=== PATIENT | male | born 1975 | race Caucasian/White ===

== ENCOUNTER 2019-03-17 14:00 | Emergency (ER) | payer OTHER, SELFPAY ==
--- NOTE | ~2019-03-17 | XR_ITS ---
XR hand LT min 3V DATE: 03/17/2019 14:27 INDICATION: Injury. Pain at third and fourth digits. TECHNIQUE: 3 views of left hand COMPARISON: None FINDINGS: There is evidence of an old avulsion fracture of the dorsal base of the distal phalanx of t he fifth digit. No recent fracture or dislocation, periosteal reaction or bone destruction. The joint space narrowing is evident. No erosive change or chondral calcinosis. IMPRESSION: No recent fracture or dislocation Reviewed, dictated and finalized at location A. CATION SERVICES SPECIALIST
[2019-03-17 14:09] VITALS: BP 129/85; PULSE 94; RESP 18; TEMP 36.9; O2SAT 100
--- NOTE | 2019-03-17 15:38 | ED.UPPEXIN ---
HPI - Extremity Injury (Upper) General Chief Complaint: Extremity Injury, Upper Stated Complaint: L HAND PAIN Time Seen by Provider: 03/17/19 14:14 Source: patient Mode of arrival: ambulatory Limitations: no limitations History of Present Illness HPI narrative: This is a 43-year-old male that presents the emergency department for left hand pain x1 week. Reports an injury to the hand about a week ago for which she was seen at an outside facility and an x-ray was done that was normal. Reports a couple of days ago he had an injury at work. Reports a crush injury to the hand. Reports since he has had pain in the hand especially of the third, fourth and fifth fingers. Reports the pain is worsened with range of motion. He has been icing and taking [id number] pain medication with little relief. Denies decreased range of motion or numbness. Related Data Home Medications Medication Instructions Recorded Confirmed lisinopril 03/17/19 Allergies Allergy/AdvReac Type Severity Reaction Status Date / Time ibuprofen [From Motrin IB] AdvReac Nausea Verified 03/17/19 14:43 Review of Systems Review of Systems: Narrative: CONSTITUTIONAL: Denies fever MUSCULOSKELETAL: Reports joint pain, and myalgia. NEUROLOGIC: Denies numbness, or weakness. All systems reviewed & are unremarkable except as noted in HPI and below PMFSH Past Medical History Medical History (Updated 03/17/19 @ 15:55 by Avril French PA-C) History of ADHD History of hypertension Social History Social History Gender identity (if verbalized by the patient): Male Exam Narrative: Exam Narrative: GENERAL: Well-appearing, well-nourished, and in no acute distress. HEAD: Normocephalic, atraumatic. EYES: EOMI. EXTREMITIES: Normal range of motion. No edema or obvious deformity. Normal sensation. Normal radial pulses SKIN: Warm, dry, no rash. NEURO: No focal deficits. Alert and oriented x3. PSYCH: Normal mood and affect Course Vital Signs Vital signs: Vital Signs Temperature 98.4 F 03/17/19 14:09 Pulse Rate 94 03/17/19 14:09 Respiratory Rate 18 03/17/19 14:09 Blood Pressure 129/85 03/17/19 14:09 Pulse Oximetry 100 03/17/19 14:09 Temperature 98.4 F 03/17/19 14:09 Pulse Rate 94 03/17/19 14:09 Respiratory Rate 18 03/17/19 14:09 Blood Pressure 129/85 03/17/19 14:09 Pulse Oximetry 100 03/17/19 14:09 MDM - Extremity Injury (Upper) MDM Narrative Medical decision making narrative: Patient presents emergency department for left hand pain after an injury at work a couple days ago. Left hand x-ray without acute changes. Patient was instructed to rest, ice and take [id number] pain medication as needed. He is to follow-up with primary care doctor. He was given warnings to return to the ER Imaging Data Radiologist's impression: ITS Impressions Hand X-Ray 03/17/19 14:29 IMPRESSION: No recent fracture or dislocation Critical Care Time Critical Care Time Critical Care Time: No Discharge Plan Discharge Clinical Impression: Hand pain, left Patient Disposition: Home, Self-Care Condition: Stable Instructions: Crush Injury (ED) Additional Instructions: Return to the emergency department if you experience fever, redness and swelling of your hand, numbness, your hand feels cold, or any other symptoms that are concerning to you Ice to the area. Elevate. Tylenol as needed for pain Follow-up with your primary care doctor Prescriptions: No Action lisinopril 10 mg tablet RF: 0 Follow-up/Referrals: Manjit,BRIAN Ferrera [Primary Care Provider] - 3 Days Time of Disposition: 15:38
== END 2019-03-17 16:05 | disposition home or self-care (01) ==
PROVIDERS: Emergency Provider Emergency Medicine; PCP Physician Assistant
DX: M79.642 Pain in left hand (principal); I10 Essential (primary) hypertension
CPT/HCPCS: 73130; 99283; A9270

== ENCOUNTER 2019-04-21 18:20 | Emergency (ER) | payer OTHER, SELFPAY ==
--- NOTE | ~2019-04-21 | XR_ITS ---
EXAMINATION: XR foot RT min 3V EXAM DATE: 04/21/2019 19:26 INDICATION: Right foot pain for 4 days. No known recent injury provided at this time. TECHNIQUE: Right foot dorsoplantar, lateral and oblique projections obtained and reviewed. There is no prior study for comparison. FINDINGS: Right metatarsal bones unremarkable. No periosteal reaction or band of sclerosis to sugge st subacute stress fracture. There are no bony erosions identified. There are no acute fractures or d islocations identified. There is no subcutaneous gas. The soft tissue is unremarkable. There are no radiopaque foreign bodies. IMPRESSION: 1. Unremarkable XR foot RT min 3V exam. Reviewed, dictated and finalized at location A. GER MACHINE
[2019-04-21 18:43] VITALS: BP 181/100; PULSE 92; RESP 18; TEMP 36.7; O2SAT 100
--- NOTE | 2019-04-21 19:07 | ED.LOWEXIN ---
HPI - Extremity Injury (Lower) General Chief Complaint: Extremity Injury, Lower Stated Complaint: Right foot Pain Time Seen by Provider: 04/21/19 19:07 Source: patient and RN notes reviewed Mode of arrival: ambulatory Limitations: no limitations History of Present Illness HPI Narrative: 44-year-old male presents to express care with complaints of pain to his right foot which has progressively increased over the last 4 days. Denies any known injury to his right foot, states he is on his feet a lot and pain incraseses with activity and weight bearing. Patient states that his discomfort is over the proximal aspect of his third and 4th toes dorsally. Patient does have hammer toes to the 3rd and 4th toes of his right foot, strong pedal and posterior tibial pulses present to right foot, foot warm to touch and mobile no tingling or numbness to his right foot verbalized. complaint: other (right foot pain) Onset (ago): day(s) (4) Injury: Right: foot Type of Injury: other (None) Severity: moderate Severity scale (1-10): 4 Relieving factors: nothing Exacerbating factors: weight bearing Context: other (No known injury) Associated symptoms: other (Pain proximal dorsal third and fourth toes with activity) Other symptoms: none Treatments prior to arrival: other ( Tylenol) Related Data Home Medications Medication Instructions Recorded Confirmed lisinopril 10 mg PO DAILY 04/21/19 04/21/19 sildenafil 25 mg PO DAILY PRN 04/21/19 04/21/19 Allergies Allergy/AdvReac Type Severity Reaction Status Date / Time ibuprofen [From Motrin IB] AdvReac Nausea Verified 04/21/19 18:59 Review of Systems Review of Systems: Narrative: CONSTITUTIONAL: Denies fever, chills, or sweats. EYES: Denies visual changes, redness, or discharge. ENT: Denies rhinorrhea, congestion, sore throat, or otalgia. CARDIOVASCULAR: Denies chest pain, palpitations, or edema. RESPIRATORY: Denies cough or dyspnea. GASTROINTESTINAL: Denies abdominal pain, nausea, vomiting, or diarrhea. GENITOURINARY: Denies dysuria or hematuria. SKIN: Denies rash or itching. MUSCULOSKELETAL: Denies back pain, positive right foot pain or myalgia. NEUROLOGIC: Denies headache, numbness, or weakness. PSYCHIATRIC: Denies anxiety or depression. All systems reviewed & are unremarkable except as noted in HPI and below PMFSH Past Medical History Medical History History of ADHD History of hypertension Social History Social History (Updated 04/25/19 @ 14:37 by Alanis Reese NP) Living arrangements: with family Gender identity (if verbalized by the patient): Male Comments At time of signature, agree with nursing past medical, social history. There is no relevant family history pertinent to the presenting complaint Exam Narrative: Exam Narrative: GENERAL: Well-appearing, well-nourished, and in no acute distress. HEAD: Normocephalic, atraumatic. EYES: PERRLA and EOMI. ENT: Nares clear, no rhinorrhea or epistaxis. Mucous membranes moist. NECK: Supple. CHEST: Clear to auscultation. No respiratory distress. HEART: Regular rate and rhythm. No murmur heard. Normal peripheral pulses. ABDOMEN: Soft, non tender, non distended, normal active bowel sounds. EXTREMITIES: Normal range of motion. No edema. full ROM of right foot, pain stated dorsal proximal region of right 3rd and 4th toe region of right foot, sensation, circulation and mobility intact, does have hammer toes 3rd and 4th toes of his right foot SKIN: Warm, dry, no rash. NEURO: No focal deficits. Alert and oriented x3. Course Vital Signs Vital signs: Vital Signs Temperature 36.7 C 04/21/19 18:43 Pulse Rate 92 04/21/19 18:43 Respiratory Rate 18 04/21/19 18:43 Blood Pressure 181/100 H 04/21/19 18:43 Pulse Oximetry 100 04/21/19 18:43 Temperature 36.7 C 04/21/19 18:43 Pulse Rate 92 04/21/19 18:43 Respiratory Rate 18 04/21/19 18:43 Blood Pressure 181/
== END 2019-04-21 19:45 | disposition home or self-care (01) ==
PROVIDERS: Emergency Provider Registered Nurse; PCP Physician Assistant
DX: M79.671 Pain in right foot (principal); I10 Essential (primary) hypertension
CPT/HCPCS: 73630; 99213; G0463

== ENCOUNTER 2019-05-18 18:32 | Emergency (ER) | payer OTHER, SELFPAY ==
--- NOTE | ~2019-05-18 | XR_ITS ---
EXAMINATION: XR hand LT min 3V EXAM DATE: 05/18/2019 18:52 INDICATION: Initial encounter following injury, with pain of the left hand. TECHNIQUE: Left hand frontal, lateral and oblique projections obtained and reviewed. Comparison is ma de to prior examination from 03/17/2019. FINDINGS: Left metacarpal bones are unremarkable. There are no acute fractures or dislocations ident ified. There is no subcutaneous gas. The soft tissue is unremarkable. There are no radiopaque for eign bodies. IMPRESSION: No acute osseous findings. Reviewed, dictated and finalized at location A. IMPRESSION: No acute osseous findings.
[2019-05-18 18:41] VITALS: BP 159/92; PULSE 107; RESP 20; TEMP 36.9; O2SAT 98
--- NOTE | 2019-05-18 19:04 | ED.UPPEXIN ---
HPI - Extremity Injury (Upper) General Chief Complaint: Extremity Injury, Upper Stated Complaint: left hand injury Time Seen by Provider: 05/18/19 18:55 Source: patient and RN notes reviewed Mode of arrival: ambulatory Limitations: no limitations History of Present Illness HPI narrative: Patient presents today complaining of a laceration to the base of his left second and third fingers. He was using a power screwdriver to screw a piece into his lawnmower. 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 Patient is experiencing pain to the third finger. Currently rates his pain 8/10. He tried Tylenol without relief. He is up-to-date on his tetanus vaccine. MD complaint: injury to: left and hand Related Data Home Medications Medication Instructions Recorded Confirmed sildenafil 25 mg PO DAILY PRN 04/21/19 05/18/19 amlodipine 5 mg PO DAILY 05/18/19 05/18/19 citalopram 40 mg PO DAILY 05/18/19 05/18/19 hydroxyzine HCl 25 mg PO TID PRN 05/18/19 05/18/19 lisinopril 20 mg PO DAILY 05/18/19 05/18/19 Allergies Allergy/AdvReac Type Severity Reaction Status Date / Time ibuprofen [From Motrin IB] AdvReac Nausea Verified 05/18/19 18:55 Review of Systems Review of Systems: Narrative: CONSTITUTIONAL: Denies body aches, fever, chills, or sweats. EYES: Denies visual changes, redness, or discharge. ENT: Denies rhinorrhea, congestion, sore throat, or otalgia. CARDIOVASCULAR: Denies chest pain, palpitations, or edema. RESPIRATORY: Denies cough or dyspnea. GASTROINTESTINAL: Denies abdominal pain, nausea, vomiting, or diarrhea. GENITOURINARY: Denies dysuria or hematuria. SKIN: Denies rash, itching. + Laceration to left hand MUSCULOSKELETAL: Denies back pain, joint pain, or myalgia. NEUROLOGIC: Denies headache, numbness, tingling, or weakness. PSYCH: Denies depression or anxiety. PMFSH Social History Social History (Updated 04/25/19 @ 14:37 by Alanis Reese NP) Gender identity (if verbalized by the patient): Male Exam Narrative: Exam Narrative: GENERAL: Well-appearing, well-nourished, and in no acute distress. HEAD: Normocephalic, atraumatic. EYES: EOMI. No redness or drainage. Conjunctivae normal. ENT: Mucous membranes pink and moist. NECK: Normal AROM. CHEST: No respiratory distress. HEART: Regular rate and rhythm. No murmur appreciated. Normal peripheral pulses. EXTREMITIES: Normal range of motion. No edema. SKIN: Warm, dry, no rash. Capillary refill normal. Normal skin turgor. 1.5cm skin avulsion that does not penetrate into the adipose, at base of the volar aspect of the left 2nd finger, extending to the base of the third finger noted and surrounding ecchymosis. Distal sensation intact. Capillary refill normal. Full AROM of all fingers against resistance. NEURO: No focal deficits. Alert and oriented x3. Gait steady. PSYCH: Anxious Course Vital Signs Vital signs: Vital Signs Temperature 98.4 F 05/18/19 18:41 Pulse Rate 107 H 05/18/19 18:41 Respiratory Rate 20 05/18/19 18:41 Blood Pressure 159/92 H 05/18/19 18:41 Pulse Oximetry 98 05/18/19 18:41 Temperature 98.4 F 05/18/19 18:41 Pulse Rate 107 H 05/18/19 18:41 Respiratory Rate 20 05/18/19 18:41 Blood Pressure 159/92 H 05/18/19 18:41 Pulse Oximetry 98 05/18/19 18:41 Reviewed. Pt has been instructed to follow up with his PCP regarding his elevated blood pressure today. MDM - Extremity Injury (Upper) MDM Narrative Medical decision making narrative: Patient requesting pain medication for severe 3rd finger pain. After examining and irrigating wound and determining that wound did not penetrate the adipose, I told patient that narcotic pain medication was not indicated at this time. Differential Diagnosis Differential diagnosis: Likely other (Foreign body, fracture, laceration, puncture wound) Imaging Data Radiologist's impression: ITS Impressions Hand X-R
== END 2019-05-18 19:20 | disposition home or self-care (01) ==
PROVIDERS: Emergency Provider Nurse Practitioner; PCP Physician Assistant
DX: S61.402A Unspecified open wound of left hand, initial encounter (principal); W29.8XXA Contact with other powered hand tools and household machinery, initial encounter
CPT/HCPCS: 73130; 99213; G0463

== ENCOUNTER 2019-05-24 19:10 | Emergency (ER) | payer OTHER, SELFPAY ==
[2019-05-24 19:16] VITALS: BP 158/100; PULSE 96; RESP 20; TEMP 36.8; O2SAT 98
--- NOTE | 2019-05-24 19:24 | ED.SKABFB ---
HPI - Skin/Abscess/Foreign Bdy General Chief complaint: Extremity Injury, Upper Stated complaint: Injury to left 1st finger Time Seen by Provider: 05/24/19 19:24 Source: patient and RN notes reviewed History of Present Illness HPI narrative: Patient is a 44-year-old male that presents the urgent care with complaints of a laceration to the left index finger. Patient states that he was using a pocket knife on his flagpole and it slipped across to the left index finger. Patient states that he wrapped it and came straight to the urgent care. Patient states he is up-to-date on his tetanus. No other acute complaints. No acute distress noted. Patient read the plan of care. Related Data Home Medications Medication Instructions Recorded Confirmed sildenafil 25 mg PO DAILY PRN 04/21/19 05/18/19 amlodipine 5 mg PO DAILY 05/18/19 05/18/19 citalopram 40 mg PO DAILY 05/18/19 05/18/19 hydroxyzine HCl 25 mg PO TID PRN 05/18/19 05/18/19 lisinopril 20 mg PO DAILY 05/18/19 05/18/19 Allergies Allergy/AdvReac Type Severity Reaction Status Date / Time ibuprofen [From Motrin IB] AdvReac Nausea Verified 05/18/19 18:55 Review of Systems Review of Systems: Narrative: CONSTITUTIONAL: Denies fever, chills, or sweats. EYES: Denies visual changes, redness, or discharge. ENT: Denies rhinorrhea, congestion, sore throat, or otalgia. CARDIOVASCULAR: Denies chest pain, palpitations, or edema. RESPIRATORY: Denies cough or dyspnea. GASTROINTESTINAL: Denies abdominal pain, nausea, vomiting, or diarrhea. GENITOURINARY: Denies dysuria or hematuria. SKIN: Reports of a laceration to the left index finger MUSCULOSKELETAL: Denies back pain, joint pain, or myalgia. NEUROLOGIC: Denies headache, numbness, or weakness. All other systems reviewed are negative, except as documented in HPI. [facility] Social History Social History (Updated 04/25/19 @ 14:37 by Alanis Reese NP) Gender identity (if verbalized by the patient): Male Comments At the time of my signature, I reviewed and agree with the nursing past medical, surgical, social, and family history. There is no relevant family history pertinent to the patient complaint. Exam Narrative: Exam Narrative: GENERAL: This is a well-nourished, well-developed patient, in no apparent distress. HEAD: normocephalic, atraumatic. EYES: PERRL. Sclera clear/white. Vision is grossly intact. EARS: External ears normal NOSE: External nose normal with no obvious nasal discharge THROAT: Mucous membranes moist NECK: Neck supple CARDIOVASCULAR: Regular rate and rhythm without murmurs, gallops, or rubs. SKIN: 2 cm linear clean laceration without depth to the left index finger just distal of the PIP NEURO: awake, alert, and oriented to person, place and time. There were no obvious focal neurologic abnormalities. EXTREMITIES: No clubbing, cyanosis, or edema. Left upper extremity less than 2 Seconds capillary refill. Range of motion to affected finger within normal limits Course Vital Signs Vital signs: Vital Signs Temperature 98.2 F 05/24/19 19:16 Pulse Rate 96 05/24/19 19:16 Respiratory Rate 20 05/24/19 19:16 Blood Pressure 158/100 H 05/24/19 19:16 Pulse Oximetry 98 05/24/19 19:16 Temperature 98.2 F 05/24/19 19:16 Pulse Rate 96 05/24/19 19:16 Respiratory Rate 20 05/24/19 19:16 Blood Pressure 158/100 H 05/24/19 19:16 Pulse Oximetry 98 05/24/19 19:16 Reviewed?patient is informed that they may have pre-hypertension or hypertension based on a blood pressure reading in the department. I recommend the patient call the primary care provider listed on their discharge instructions or a physician of their choice this week to arrange follow-up for further evaluation of possible pre-hypertension or hypertension. Procedures Laceration Laceration 1: Site: upper extremity (Left index finger) Side (If applicable): left Description: linear Pre-repair: other (Soaked and cleans
== END 2019-05-24 19:36 | disposition home or self-care (01) ==
PROVIDERS: Emergency Provider Nurse Practitioner Family; PCP Physician Assistant
DX: S61.211A Laceration without foreign body of left index finger without damage to nail, initial encounter (principal); W26.0XXA Contact with knife, initial encounter; I10 Essential (primary) hypertension; F41.0 Panic disorder [episodic paroxysmal anxiety]
CPT/HCPCS: 12001; 99212; G0463

== ENCOUNTER 2019-09-18 23:18 | Emergency (ER) | payer OTHER, SELFPAY ==
--- NOTE | ~2019-09-18 | XR_ITS ---
EXAMINATION: XR ankle RT min 3V INDICATION: Right ankle pain TECHNIQUE: Four views of the right ankle are obtained. COMPARISON: 04/21/2019 FINDINGS: There is anterior soft tissue swelling of the ankle. No radiopaque foreign body is identifi ed. There is no fracture, dislocation, or subluxation. IMPRESSION: 1. No acute osseous abnormality. 2. Anterior soft tissue swelling of the ankle without radiopaque foreign body identified. Reviewed, dictated and finalized at location A. IMPRESSION: 1. No acute osseous abnormality. 2. Anterior soft tissue swelling of the ankle without radiopaque foreign body i dentified.
[2019-09-18 23:34] VITALS: BP 154/99; PULSE 72; RESP 18; TEMP 36.4; O2SAT 97
--- NOTE | 2019-09-18 23:51 | ED.LOWEXIN ---
HPI - Extremity Injury (Lower) General Chief Complaint: Extremity Injury, Lower Stated Complaint: ANKLE PAIN Time Seen by Provider: 09/18/19 23:30 Source: RN notes reviewed History of Present Illness HPI Narrative: Patient presents emergency department from home for right ankle pain. Patient states approximate 1 PM today he was mowing the yard when a small log was shot out and hit him directly on the anterior right ankle. He states he had a large amount of swelling at that time that has decreased but continues to have pain with ecchymosis. States he has mild tingling in the third and fourth toes of the right foot. He denies any other trauma or injury states he has been walking on the foot. States he took ibuprofen at home with normal relief Related Data Home Medications Medication Instructions Recorded Confirmed sildenafil 25 mg PO DAILY PRN 04/21/19 05/24/19 amlodipine 5 mg PO DAILY 05/18/19 05/24/19 citalopram 40 mg PO DAILY 05/18/19 05/24/19 hydroxyzine HCl 25 mg PO TID PRN 05/18/19 05/24/19 lisinopril 20 mg PO DAILY 05/18/19 05/24/19 acetaminophen-codeine 1 tablet PO Q4-6H PRN 05/24/19 05/24/19 Allergies Allergy/AdvReac Type Severity Reaction Status Date / Time ibuprofen [From Motrin IB] AdvReac Nausea Verified 05/24/19 19:33 Review of Systems Review of Systems: Narrative: Gen.: Denies fevers or chills Musculoskeletal: See HPI Neuro: Denies numbness, tingling, weakness Skin: Denies rash Endo: Denies DM PMFSH Past Medical History Medical History History of ADHD History of hypertension Social History Social History (Updated 09/18/19 @ 23:52 by Nirmal Beck DO) Smoking status: Current every day smoker Gender identity (if verbalized by the patient): Male Exam Narrative: Exam Narrative: APPEARANCE: No acute distress, nontoxic, resting in bed Eyes: EOMI HEENT: Normocephalic, atraumatic, RESPIRATORY: No respiratory distress MUSCULOSKELETAl: Tender palpation over the right anterior ankle with mild swelling and ecchymosis, no tenderness of the medial or lateral malleolus, no tenderness of the foot, dorsalis pedis pulse 2+, neurovascular intact NEURO: Awake and alert. Following commands, speech normal, no focal deficits SKIN:: Warm, dry. Normal Color no rash or lesions Course Course Emergency Course: Discussed with patient results of workup and diagnosis. Discussed need for follow-up with primary care, proper use of medication, and reasons to return to the emergency department. Patient understands and agrees to current treatment plan . Patient states he is unable to take ibuprofen or other NSAIDs Vital Signs Vital signs: Vital Signs Temperature 97.5 F L 09/18/19 23:34 Pulse Rate 72 09/18/19 23:34 Respiratory Rate 18 09/18/19 23:34 Blood Pressure 154/99 H 09/18/19 23:34 Pulse Oximetry 97 09/18/19 23:34 Temperature 97.5 F L 09/18/19 23:34 Pulse Rate 72 09/18/19 23:34 Respiratory Rate 18 09/18/19 23:34 Blood Pressure 154/99 H 09/18/19 23:34 Pulse Oximetry 97 09/18/19 23:34 MDM - Extremity Injury (Lower) Imaging Data Attestation: I personally reviewed and interpreted this imaging study as follows: My impression: Ankle x-ray reviewed by myself shows no acute process Discharge Plan Discharge Clinical Impression: Contusion of ankle, right Patient Disposition: Home, Self-Care Condition: Stable Instructions: Antibiotic Form, Contusion in Adults (ED) Additional Instructions: Return for increasing pain numbness or any other symptoms of concern. Keep the leg elevated at rest. Prescriptions: New hydrocodone-acetaminophen 5-325 mg tablet 1 tablet PO Q4H PRN (Reason: pain) Qty: 6 RF: 0 No Action citalopram 40 mg Tablet 40 mg PO DAILY RF: 0 lisinopril 20 mg Tablet 20 mg PO DAILY RF: 0 amlodipine 5 mg Tablet 5 mg PO DAILY RF: 0 hydroxyzine HCl 25 mg Tablet 25 mg P
[2019-09-19 00:29] VITALS: BP 132/74; PULSE 70; RESP 16; O2SAT 99
== END 2019-09-19 00:31 | disposition home or self-care (01) ==
PROVIDERS: Emergency Provider Emergency Medicine; PCP Physician Assistant
DX: S90.01XA Contusion of right ankle, initial encounter (principal); F90.9 Attention-deficit hyperactivity disorder, unspecified type; I10 Essential (primary) hypertension; F17.200 Nicotine dependence, unspecified, uncomplicated; W20.8XXA Other cause of strike by thrown, projected or falling object, initial encounter; Y93.H2 Activity, gardening and landscaping
CPT/HCPCS: 73610; 99283; A9270

== ENCOUNTER 2020-02-01 16:16 | Outpatient (CLI) | payer OTHER, SELFPAY ==
[2020-02-01 18:47] LABS: SARS-CoV-2 Ag Negative (Negative)
== END 2020-02-01 16:17 | disposition home or self-care (01) ==
PROVIDERS: PCP Physician Assistant; Visit Provider Physician Assistant
DX: Z20.828 Contact with and (suspected) exposure to other viral communicable diseases (principal)
CPT/HCPCS: 87426

== ENCOUNTER 2020-09-12 09:08 | Emergency (ER) | payer OTHER, SELFPAY ==
--- NOTE | ~2020-09-12 | CT_ITS ---
EXAMINATION: CT brain wo con EXAM DATE: 09/12/2020 10:21 INDICATION: Paresthesia. TECHNIQUE: Spiral CT of the head was performed without contrast. Axial, coronal and sagittal images were reviewed. The dose-length product (DLP) for this examination was 605.33 mGy-cm. The exposure w as tailored according to patient size, and iterative reconstruction (ASIR) was used as additional dos e reduction technique. There is no prior study for comparison. FINDINGS: There is no acute intraparenchymal hemorrhage. No evidence of intraparenchymal brain mass lesion. No evidence of acute infarction. There is no mass effect or midline shift. The ventricles are normal in size. There are no extra-axial collections. There are no acute calvarial fractures. T he orbits are unremarkable. Soft tissue is unremarkable. Mild ethmoid mucoperiosteal thickening. IMPRESSION: 1. Unremarkable head CT examination. Reviewed, dictated and finalized at location B.
--- NOTE | ~2020-09-12 | US_ITS ---
US scrotum doppler INDICATION: Testicular pain TECHNIQUE: Testicular sonogram utilizing grayscale and color Doppler FINDINGS: The testes are normal in size and appearance. No focal lesions are seen. The right testes measures 3 x 2.7 x 1.7 cm centimeters, and the left testis measures 3 x 1.6 x 2.3 cm cm. There is nor mal vascular flow to both testes. The right and left epididymides appear normal. There is a small right hydrocele. There is a left varicocele. IMPRESSION: 1. Left varicocele. 2: Small right hydrocele. Reviewed, dictated and finalized at location A.
--- NOTE | ~2020-09-12 | XR_ITS ---
EXAMINATION: XR chest 2V 09/12/2020 10:24 INDICATION: Hypertension. Epigastric pain. PROCEDURE: 2 view chest COMPARISON: No prior studies for comparison. FINDINGS: The lungs are clear. The cardiomediastinal silhouette is within normal limits. There are no pleural effusions. There is no pneumothorax suspected. IMPRESSION: 1: NO ACUTE CARDIOPULMONARY DISEASE. Reviewed, dictated and finalized at location A.
[2020-09-12 09:19] VITALS: BP 153/99; PULSE 86; RESP 18; TEMP 36.5; O2SAT 98
[2020-09-12 09:41] LABS: Basophils Absolute Auto 0.1 K/mm3 (0.0-0.1); Basophils Percent Auto 0.6 % (0.2-1.2); Eosinophils Absolute Auto 0.2 K/mm3 (0-0.3); Eosinophils Percent Auto 2.2 % (0-4.4); Hemoglobin 14.8 g/dL (14.0-18.0); Immature Granulocyte Absolute 0.04 K/mm3 (0.00-0.031); Immature Granulocyte Percent A 0.4 % (0-0.5); Lymphocytes Absolute Auto 2.59 K/mm3 (0.9-3.2); Lymphocytes Percent Auto 23.7 % (18.3-44.2); Mean Corpuscular HGB Conc 33.6 g/dl (32-36); Mean Corpuscular Hemoglobin 31.3 pg (26-34); Mean Platelet Volume 10.5 fl (7.4-10.4); Monocytes Absolute Auto 0.7 K/mm3 (0.1-0.6); Monocytes Percent Auto 6.3 % (2.6-8.5); Neutrophils Absolute Auto 7.3 K/mm3 (1.3-6.7); Neutrophils Percent Auto 66.8 % (45.5-73.1); Platelet Count Result 294 k/mm3 (150-375); Red Blood Count 4.73 M/mm3 (4.6-6.20); Red Cell Distribution Width 13.8 % (11.5-14.5); White Blood Count 10.9 K/mm3 (4.5-10.0)
--- NOTE | 2020-09-12 09:47 | ECG_ITS ---
Measurements Intervals [place] Rate: 82 P: 62 [place]: 155 QRS: 41 QRSD: 90 T: 49 QT: 348 QTc: 408 Interpretive Statements SINUS RHYTHM NORMAL ECG Electronically Signed On 09-12-2020 10:58:15 CDT by Alonzo Yun D.O.
--- NOTE | 2020-09-12 09:50 | ED.NAVMDI ---
HPI - Nausea/Vomiting/Diarrhea General Chief complaint: Nausea/Vomiting/Diarrhea <Avril French PA-C - Last Filed: 09/12/20 11:55> Stated complaint: n/v, facial numbness <AFTAB Montero Last Filed: 09/12/20 11:55> Time Seen by Provider: 09/12/20 09:23 <AFTAB Montero Last Filed: 09/12/20 11:55> Source: patient <AFTAB Montero Last Filed: 09/12/20 11:55> Mode of arrival: ambulatory <AFTAB Montero Last Filed: 09/12/20 11:55> Limitations: no limitations <AFTAB Montero Last Filed: 09/12/20 11:55> History of Present Illness HPI Narrative: This is a 45 year old male that presents to the ER for heat exhaustion. Reports he was outside at work all day yesterday. He started to feel overheated and had nausea and vomiting. He drank a lot of water and went home and rested. Reports nausea persisted and he had several episodes of diarrhea this morning. Reports burning epigastric pain. Also reports he has had tingling in his lower lip since about 4 this morning. Initially he felt tingling all over his body, but the lower lip tingling has persisted. He also reports that he has had right testicular pain since this morning. Denies fever, dysuria, or hematuria. <AFTAB Montero Last Filed: 09/12/20 11:55> Related Data Home medications: Home Medications Medication Instructions Recorded Confirmed sildenafil 25 mg PO DAILY PRN 04/21/19 05/24/19 amlodipine 5 mg PO DAILY 05/18/19 05/24/19 citalopram 40 mg PO DAILY 05/18/19 05/24/19 hydroxyzine HCl 25 mg PO TID PRN 05/18/19 05/24/19 lisinopril 20 mg PO DAILY 05/18/19 05/24/19 <AFTAB Montero Last Filed: 09/12/20 11:55> Allergies/Adverse reactions: Allergies Allergy/AdvReac Type Severity Reaction Status Date / Time ibuprofen [From Motrin IB] AdvReac Nausea Verified 09/12/20 09:29 <Avril French PA-C - Last Filed: 09/12/20 11:55> Review of Systems Review of Systems: Narrative: CONSTITUTIONAL: Denies fever CARDIOVASCULAR: Denies chest pain GASTROINTESTINAL: Reports abdominal pain, nausea, vomiting, and diarrhea. GENITOURINARY: Denies dysuria or hematuria. <Avril French PA-C - Last Filed: 09/12/20 11:55> All systems reviewed & are unremarkable except as noted in HPI and below <Avril French PA-C - Last Filed: 09/12/20 11:55> PMFSH Past Medical History Medical History: Medical History (Updated 09/12/20 @ 11:54 by Avril French PA-C) History of ADHD History of anxiety History of hypertension History of posttraumatic stress disorder (PTSD) <Avril French PA-C - Last Filed: 09/12/20 11:55> Social History Social History: Social History (Updated 09/18/19 @ 23:52 by Nirmal Bcek DO) Smoking status: Current every day smoker Gender identity (if verbalized by the patient): Male <Avril French PA-C - Last Filed: 09/12/20 11:55> Exam Narrative: Exam Narrative: GENERAL: Well-appearing, well-nourished, and in no acute distress. HEAD: Normocephalic, atraumatic. EYES: PERRLA and EOMI. ENT: Nares clear, no rhinorrhea or epistaxis. Mucous membranes moist. Oropharynx without tonsillar hypertrophy exudate or other lesions. Bilateral TMs pearly ko non-bulging NECK: Supple. No adenopathy or masses. CHEST: Clear to auscultation. No respiratory distress. No wheezes rales or rhonchi HEART: Regular rate and rhythm. No murmur heard. Normal peripheral pulses. ABDOMEN: Soft, nondistended, normal active bowel sounds. Mild tenderness to palpation in epigastrium, without guarding. No CVA tenderness EXTREMITIES: Normal range of motion. No edema. Strength equal in bilateral upper and lower extremities (5/5) SKIN: Warm, dry, no rash. NEURO: No focal deficits. Alert and oriented x3. Cranial nerves II through XII grossly intact PSYCH: Normal mood and affect <Avril French PA-C - Last Filed: 09/12/20 11:55> Course Vital Signs Vital sign
[2020-09-12 09:57] LABS: Add Urine Microscopic? NO; Appearance Urine Clear (Clear); Bilirubin Urine Negative (Negative); Blood Urine Negative (Negative); Color Urine Colorless (Yellow); Glucose Urine UA Negative (Negative); Ketones Urine Negative (Negative); Leukocyte Esterase Ur Negative LEU/UL (Negative); Nitrate Urine Negative (Negative); Protein Urine Negative (Negative); Urobilinogen Urine Negative mg/dL (<2.0)
[2020-09-12] MEDS: LORazepam INJ (*CRX) 2 MG/ML VIAL 0.5 MG IV PUSH (09:58)
[2020-09-12 09:59] LABS: Alanine Aminotransferase 22 U/L (4-50); Albumin Level 4.6 g/dL (3.5-5.1); Alkaline Phosphatase 63 U/L (38-126); Anion Gap 7 mmol/L (8-16); Aspartate Amino Transferase 35 U/L (17-59); Bilirubin,Total 0.9 mg/dL (0.2-1.3); Blood Urea Nitrogen 13 mg/dL (9-20); Calcium 9.5 mg/dL (8.4-10.2); Carbon Dioxide 26 mmol/L (22-30); Chloride 107 mmol/L (98-107); Estimated CRCL calculation 136 ml/min; Estimated Glomerular Filt Rate > 60; Glucose 104 mg/dL (65-110); Lipase 67 U/L (23-300); Potassium 4.6 mmol/L (3.4-5.0); Sodium 140 mmol/L (137-145)
--- NOTE | 2020-09-12 10:06 | PC.NURSE ---
Pt to CT scan via wheelchair.
[2020-09-12 10:08] LABS: Specific Grav Ur 1.003 (1.001-1.035)
[2020-09-12 10:51] LABS: Creatine Kinase 212 U/L (55-170)
[2020-09-12] MEDS: ONDANSETRON INJ 4 MG/2 ML VIAL IV PUSH (10:52)
[2020-09-12] MEDS: FAMOTIDINE 20 MG/2 ML VIAL IV PUSH (10:52)
[2020-09-12] MEDS: SODIUM CHLORIDE 0.9% IV 1,000 ML 999 ML IV CONT (10:52)
[2020-09-12 10:58] VITALS: BP 131/88; PULSE 82; RESP 14; O2SAT 98
[2020-09-12 12:12] VITALS: BP 135/83; PULSE 91; RESP 18; O2SAT 98
== END 2020-09-12 12:13 | disposition home or self-care (01) ==
PROVIDERS: Physician Assistant; Emergency Provider General Practice; PCP Physician Assistant
DX: E86.0 Dehydration (principal); F41.9 Anxiety disorder, unspecified; I10 Essential (primary) hypertension
CPT/HCPCS: 36415; 70450; 71046; 76870; 80053; 81003; 82550; 83690; 85025; 93005; 93976; 96365; 96375; 99284; J0131; J2060; J2405; J7030